=== PATIENT | male | born 1950 | race Caucasian/White ===

== ENCOUNTER 2016-11-13 12:24 | Emergency (ER) | payer OTHER, MEDICAID ==
[~2016-11-13] VITALS: Ht 167.6 cm; Wt 59.0 kg
[2016-11-13 12:24] VITALS: BP_SYST 131
[~2016-11-13 12:24] MED LIST: ASCO500T20 GT; ATOR20TA64 GT; BLOO-129 XX; CAT.1 GT; CHLO473M5 MM; DULR10 RC; ESCI5TAB PO; FER300L GT; IPRA3AMP9 INH; IPRA4AER INH; LACT1TAB11 GT; LORA-258 GT; LORA10TA7 GT; MAGN400O4 GT; METO25TA6 GT; MULT9LIQ2 PO; NA P133E41 RC; NPH,100V SUBCUT; PANT40SU2 GT; SSREG SUBCUT; TYLL650 GT
[2016-11-13 13:00] VITALS: BP_SYST 129
== END 2016-11-13 13:00 | disposition home or self-care (01) ==
LOC: SED 12:24
DX: Z46.59 Encounter for fitting and adjustment of other gastrointestinal appliance and device (principal); E11.9 Type 2 diabetes mellitus without complications; K21.9 Gastro-esophageal reflux disease without esophagitis; I10 Essential (primary) hypertension; E11.29 Type 2 diabetes mellitus with other diabetic kidney complication; N28.9 Disorder of kidney and ureter, unspecified; N40.0 Benign prostatic hyperplasia without lower urinary tract symptoms; Z86.79 Personal history of other diseases of the circulatory system; Z79.4 Long term (current) use of insulin; Z79.899 Other long term (current) drug therapy; Z88.0 Allergy status to penicillin; Z88.1 Allergy status to other antibiotic agents
CPT/HCPCS: 99284

== ENCOUNTER 2017-04-01 22:54 | Inpatient (IN) | payer MEDICAID, OTHER ==
[~2017-04-01] VITALS: Ht 177.8 cm; Wt 92.7 kg
[2017-04-01 23:00] VITALS: BP_SYST 100
[2017-04-01] MEDS ORDERED: AZTREONAM 1 GM in NS 50 ML IV ONE (23:00)
[2017-04-01] MEDS ORDERED: CEFEPIME 1 GM in D5W 50 ML IV ONE (23:00)
[2017-04-01] MEDS ORDERED: NACL 0.9% 1,000 ML IV ONE ×2 (23:00→23:45)
[2017-04-01] MEDS ORDERED: LINEZOLID 300 ML IV ONE (23:15)
[2017-04-01 23:21] LABS: EOSINOPHILS # (AUTO) 0.2 K/uL (0.0-0.4); LYMPHOCYTES # (AUTO) 1.6 K/uL (1.0-5.5); MEAN CORPUSCULAR HGB CONC 34 % (32-36); MEAN CORPUSCULAR VOLUME 84 fL (79.0-98.0)
[2017-04-01 23:27] LABS: CALCIUM 9.4 mg/dL (8.4-11.0); CREATININE 3.01 mg/dL (0.55-1.30); POTASSIUM 4.4 mmol/L (3.5-5.1)
[2017-04-01 23:29] LABS: BASOPHILS # (AUTO) 0.1 K/uL (0.0-0.2); BASOPHILS % (AUTO) 0.5 % (0.0-2.0); EOSINOPHILS % (AUTO) 0.9 % (0.0-4.0); HEMOGLOBIN 8.1 g/dL (14.0-18.0); LYMPHOCYTES % (AUTO) 7.4 % (20.5-51.5); MEAN CORPUSCULAR HEMOGLOBIN 28 pg (27-31); MONOCYTES # (AUTO) 0.6 K/uL (0.0-1.0); MONOCYTES % (AUTO) 2.7 % (1.7-9.3); NEUTROPHILS # (AUTO) 19.1 K/uL (1.8-7.7); NEUTROPHILS % (AUTO) 88.5 % (40.0-70.0); PLATELET COUNT (AUTO) 312 K/uL (130-430); RED BLOOD CELL COUNT(AUTO) 2.85 MIL/uL (4.2-6.2); RED CELL DISTRIBUTION WIDTH 14.3 % (9.0-15.0); WHITE BLOOD COUNT (AUTO) 21.6 K/uL (4.8-10.8)
[2017-04-01 23:31] LABS: ALBUMIN 2.8 g/dL (3.4-4.8); TOTAL BILIRUBIN 0.4 mg/dL (0.0-1.0); TOTAL PROTEIN, SERUM 8.6 g/dL (6.4-8.3)
[2017-04-01 23:37] LABS: BILIRUBIN,URINE NEGATIVE (NEGATIVE); BLOOD, URINE 2+ (NEGATIVE); CLARITY/URINE SL CLOUDY (CLEAR); COLOR,URINE YELLOW (YELLOW); GLUCOSE,URINE NEGATIVE (NEGATIVE); KETONES,URINE TRACE (NEGATIVE); LEUKOCYTE ESTERASE ,URINE 2+ (NEGATIVE); NITRITE, URINE NEGATIVE (NEGATIVE); PROTEIN URINE 2+ (NEGATIVE); UROBILINOGEN,URINE 0.2 (0.2-1.0)
[2017-04-01 23:41] LABS: BACTERIA,URINE MANY /HPF (None Seen)
[2017-04-02] VITALS (28 sets, daily range): BP systolic 88–141
[2017-04-02] MEDS ORDERED: CEFEPIME 1 GM/VIAL (MAXIPIME) ONE (00:03)
[2017-04-02] MEDS ORDERED: CARV25TA55 GT (00:32)
[2017-04-02] MEDS ORDERED: HYDR2TAB7 GT (00:32)
[2017-04-02] MEDS ORDERED: UTI STAT GT (00:33)
[2017-04-02] MEDS ORDERED: ZIN220 GT (00:33)
[2017-04-02] MEDS ORDERED: ASCO500S2 GT (00:33)
[2017-04-02] MEDS ORDERED: INSU100V11 SQ (00:33)
[2017-04-02] MEDS ORDERED: ACETAMINOPHEN 650 MG/20.3 ML UDC GT PRN ×3 (01:45→11:30)
[2017-04-02] MEDS ORDERED: NACL 0.9% 750 ML IV ONE (02:45)
[2017-04-02] MEDS: LevALBUTEROL HCL 1.25 MG/0.5 ML *CONC.* VIAL.NEB (XOPENEX CONC.) INH SCH ×3 (03:15→11:21)
[2017-04-02] MEDS: KCL 20 mEq in D5/0.45NS 1000mL 1,000 ML IV SCH ×4 (03:33→18:10)
[2017-04-02 06:01] LABS: HEMOGLOBIN 8.1 g/dL (14.0-18.0); MEAN CORPUSCULAR HEMOGLOBIN 29 pg (27-31); MEAN CORPUSCULAR HGB CONC 34 % (32-36); MEAN CORPUSCULAR VOLUME 85 fL (79.0-98.0); PLATELET COUNT (AUTO) 293 K/uL (130-430); RED BLOOD CELL COUNT(AUTO) 2.81 MIL/uL (4.2-6.2); RED CELL DISTRIBUTION WIDTH 14.4 % (9.0-15.0); WHITE BLOOD COUNT (AUTO) 19.7 K/uL (4.8-10.8)
[2017-04-02 06:17] LABS: ALBUMIN 2.5 g/dL (3.4-4.8); CALCIUM 8.7 mg/dL (8.4-11.0); CREATININE 2.31 mg/dL (0.55-1.30); POTASSIUM 4.3 mmol/L (3.5-5.1); TOTAL BILIRUBIN 0.4 mg/dL (0.0-1.0); TOTAL PROTEIN, SERUM 7.9 g/dL (6.4-8.3)
[2017-04-02] MEDS: CEFEPIME 1 GM in D5W 50 ML IV SCH ×2 (09:45→20:50)
[2017-04-02 10:50] LABS: ATYPICAL LYMPHOCYTES % 1 % (0-0); BAND % (MANUAL) 23 % (0-6); BASOPHILS % (MANUAL) 0 % (0-2); EOSINOPHILS % (MANUAL) 0 % (0-7); LYMPHOCYTES % (MANUAL) 7 % (20-46); MONOCYTES % (MANUAL) 4 % (0-11)
[2017-04-02 10:58] LABS: INR 1.1 (0.80-1.20); PROTHROMBIN TIME 11.8 SECS (9.5-12.5)
[2017-04-02] MEDS ORDERED: NA PHOS,M-B/NA PHOS,DI-BA 118 ML (FLEET ENEMA) RC PRN (11:30)
[2017-04-02] MEDS ORDERED: MILK OF MAGNESIA 30 ML UDC PO PRN (11:30)
[2017-04-02] MEDS ORDERED: cloNIDine HCL 0.1 MG TABLET GT PRN (11:30)
[2017-04-02] MEDS ORDERED: MILK OF MAGNESIA 30 ML UDC GT PRN (11:30)
[2017-04-02] MEDS ORDERED: BISACODYL 10 MG/SUPPOSITORY RC PRN (11:30)
[2017-04-02] MEDS ORDERED: GENTAMICIN 120 mg/100 mL NS 100 ML IV ONE (11:30)
[2017-04-02] MEDS ORDERED: IPRATROPIUM/ALBUTEROL SULFATE 120 PUFFS/4 GM INH INH SCH (12:00)
[2017-04-02] MEDS ORDERED: IPRATROPIUM/ALBUTEROL SULFATE 3 ML AMPUL.NEB INH SCH (13:00)
[2017-04-02] MEDS: IPRATROPIUM/ALBUTEROL SULFATE 3 ML AMPUL.NEB INH SCH ×2 (13:22→19:33)
[2017-04-02] MEDS: metroNIDAZOLE 500 mg/NS 100 ML IV SCH ×2 (13:41→22:30)
[2017-04-02] MEDS: ACETAMINOPHEN 325 MG TABLET GT PRN (14:28)
[2017-04-02] MEDS: INSULIN ASPART 100 UNITS/ML, 10 ML VIAL (NovoLOG) SUBCUT PRN ×2 (17:20→23:55)
[2017-04-02] MEDS: CARVEDILOL 25 MG TABLET (COREG) GT SCH (20:49)
[2017-04-02] MEDS: FERROUS SULFATE 300 MG/5 ML UDC GT SCH (20:49)
[2017-04-02] MEDS ORDERED: ENOXAPARIN SODIUM 30 MG/0.3 ML SYRINGE SUBCUT SCH (21:00)
[2017-04-02] MEDS ORDERED: INSULIN NPH 100 UNITS/ML 10 ML VIAL SUBCUT SCH (21:00)
[2017-04-02] MEDS: LORazepam 1 MG TABLET GT PRN (21:06)
[2017-04-02] MEDS: HYDROmorphone 2 MG TAB GT PRN (21:11)
[2017-04-03] VITALS (15 sets, daily range): BP systolic 91–170
[2017-04-03] MEDS: IPRATROPIUM/ALBUTEROL SULFATE 3 ML AMPUL.NEB INH SCH ×3 (01:03→14:54)
[2017-04-03] MEDS: ACETAMINOPHEN 325 MG TABLET GT PRN (02:34)
[2017-04-03] MEDS: HYDROmorphone 2 MG TAB GT PRN (02:53)
[2017-04-03] MEDS: LORazepam 1 MG TABLET GT PRN ×2 (03:12→09:38)
[2017-04-03] MEDS: KCL 20 mEq in D5/0.45NS 1000mL 1,000 ML IV SCH (03:43)
[2017-04-03] MEDS: metroNIDAZOLE 500 mg/NS 100 ML IV SCH (05:06)
[2017-04-03] MEDS: INSULIN ASPART 100 UNITS/ML, 10 ML VIAL (NovoLOG) SUBCUT PRN ×2 (05:32→12:38)
[2017-04-03 07:28] LABS: BASOPHILS % (AUTO) 0.3 % (0.0-2.0); EOSINOPHILS # (AUTO) 0.1 K/uL (0.0-0.4); EOSINOPHILS % (AUTO) 0.7 % (0.0-4.0); LYMPHOCYTES % (AUTO) 6.6 % (20.5-51.5); MEAN CORPUSCULAR HEMOGLOBIN 29 pg (27-31); MEAN CORPUSCULAR HGB CONC 34 % (32-36); MEAN CORPUSCULAR VOLUME 86 fL (79.0-98.0); MONOCYTES # (AUTO) 0.6 K/uL (0.0-1.0); MONOCYTES % (AUTO) 3.7 % (1.7-9.3); NEUTROPHILS # (AUTO) 13.9 K/uL (1.8-7.7); NEUTROPHILS % (AUTO) 88.7 % (40.0-70.0); PLATELET COUNT (AUTO) 315 K/uL (130-430); RED CELL DISTRIBUTION WIDTH 14.8 % (9.0-15.0); WHITE BLOOD COUNT (AUTO) 15.6 K/uL (4.8-10.8)
[2017-04-03] MEDS ORDERED: FUROSEMIDE 20 MG/2 ML VIAL IVP ONE (07:30)
[2017-04-03 07:55] LABS: HEMOGLOBIN 6.4 g/dL (14.0-18.0)
[2017-04-03 07:56] LABS: HEMATOCRIT 18.8 % (36-54)
[2017-04-03 07:57] LABS: CALCIUM 8.2 mg/dL (8.4-11.0); CREATININE 2.05 mg/dL (0.55-1.30)
[2017-04-03 08:15] LABS: IRON (SERUM) 20 mcg/dL (59-158); TOTAL IRON BIND. CAPACITY 144 ug/dL (250-450)
[2017-04-03 08:19] LABS: BLOOD GAS PH 7.283 (7.350-7.450)
[2017-04-03 08:22] LABS: ABG TOTAL HEMOGLOBIN 10.5 G/dL (12.0-18.0); BLOOD GAS BASE EXCESS -8.2 mmol/L (-3.0-3.0)
[2017-04-03] MEDS: CEFEPIME 1 GM in D5W 50 ML IV SCH (08:22)
[2017-04-03] MEDS: FERROUS SULFATE 300 MG/5 ML UDC GT SCH (08:22)
[2017-04-03 08:23] LABS: BLOOD O2Hb% 80.9 % (94.0-97.0)
[2017-04-03] MEDS: CARVEDILOL 25 MG TABLET (COREG) GT SCH (08:23)
[2017-04-03 08:24] LABS: BLOOD GAS COHb% 0.2 % (0.5-1.5); BLOOD GAS HHB 18.3 % (0.0-6.0)
[2017-04-03] MEDS ORDERED: CHLORHEXIDINE GLUCONATE 15 ML/DOSE, 480 ML MM SCH (09:00)
[2017-04-03] MEDS ORDERED: PANTOPRAZOLE GRANULES PACKET 40 MG GT SCH (09:00)
[2017-04-03] MEDS ORDERED: FUROSEMIDE 20 MG/2 ML VIAL ONE (13:18)
[2017-04-03] MEDS ORDERED: NOREPINEPHRINE 4 MG/4 ML VIAL IV ONE (13:40)
[2017-04-03 18:08] LABS: ABG TOTAL HEMOGLOBIN 9.8 G/dL (12.0-18.0); BLOOD GAS BASE EXCESS -12.1 mmol/L (-3.0-3.0); BLOOD GAS PH 7.183 (7.350-7.450)
[2017-04-03 18:09] LABS: BLOOD GAS COHb% 0.3 % (0.5-1.5); BLOOD GAS HHB 33.1 % (0.0-6.0); BLOOD O2Hb% 66.1 % (94.0-97.0)
[2017-04-04] MEDS ORDERED: BALSAM PERU/CASTOR OIL 60 GM OINT...G. TP SCH (09:00)
[2017-04-04 11:44] LABS: FOLATE (FOLIC ACID) 12.5 ng/mL (>3.0)
== END 2017-04-03 13:45 | disposition expired | DRG 720 ==
LOC: SED 22:54 → SIC 04-02 01:37
PROVIDERS: ADMIT Family Medicine; ATTEND Family Medicine
PROC: 5A1945Z Respiratory Ventilation, 24-96 Consecutive Hours (ICD-10-PCS; principal; 2017-04-02)
PROC: 02HV33Z Insertion of Infusion Device into Superior Vena Cava, Percutaneous Approach (ICD-10-PCS; 2017-04-02)
PROC: B548ZZA Ultrasonography of Superior Vena Cava, Guidance (ICD-10-PCS; 2017-04-02)
PROC: 5A12012 Performance of Cardiac Output, Single, Manual (ICD-10-PCS; 2017-04-03)
DX: A41.9 Sepsis, unspecified organism (principal); I46.9 Cardiac arrest, cause unspecified; R65.21 Severe sepsis with septic shock; E43 Unspecified severe protein-calorie malnutrition; G93.40 Encephalopathy, unspecified; N17.9 Acute kidney failure, unspecified; J15.9 Unspecified bacterial pneumonia; Z99.11 Dependence on respirator [ventilator] status; I13.0 Hypertensive heart and chronic kidney disease with heart failure and stage 1 through stage 4 chronic kidney disease, or unspecified chronic kidney disease; I50.9 Heart failure, unspecified; I47.2 Ventricular tachycardia; J96.11 Chronic respiratory failure with hypoxia; F03.90 Unspecified dementia, unspecified severity, without behavioral disturbance, psychotic disturbance, mood disturbance, and anxiety; E11.22 Type 2 diabetes mellitus with diabetic chronic kidney disease; N39.0 Urinary tract infection, site not specified; E86.0 Dehydration; D64.9 Anemia, unspecified; G40.909 Epilepsy, unspecified, not intractable, without status epilepticus; J44.0 Chronic obstructive pulmonary disease with (acute) lower respiratory infection; N18.9 Chronic kidney disease, unspecified; N40.0 Benign prostatic hyperplasia without lower urinary tract symptoms; Y95 Nosocomial condition; Z16.24 Resistance to multiple antibiotics; Z86.73 Personal history of transient ischemic attack (TIA), and cerebral infarction without residual deficits; Z68.29 Body mass index [BMI] 29.0-29.9, adult; Z88.0 Allergy status to penicillin; Z88.8 Allergy status to other drugs, medicaments and biological substances; Z88.1 Allergy status to other antibiotic agents
CPT/HCPCS: 36415; 36600; 71010; 80048; 80053; 81000-TC; 82607; 82746; 82803-TC; 82962; 83540-TC; 83550-TC; 83605; 83690-TC; 83735-TC; 84484; 85007; 85025; 85027; 85610-TC; 85730-TC; 86886; 86900; 86901; 86920; 87040-TC; 87070-TC; 87081; 87086; 87186-TC; 87205-TC; 93005; 94002; 94003; 94640; 96361; 96365; 99291; C1751; C1769; J0692; J1580; J1650; J1940; J2020; J3490; J7030; J7060